=== PATIENT | male | born 1970 | race African-American/Black ===

== ENCOUNTER 2021-10-28 05:37 | Inpatient (IN) | payer MEDICAID ==
[~2021-10-28] VITALS: Ht 190.5 cm; Wt 66.3 kg
[2021-10-28 10:17] LABS: BASOPHILS % 0.4 % (0.0-2.0); EOSINOPHILS % 0.1 % (0.0-5.0); HEMATOCRIT. 42.8 % (42.0-52.0); HEMOGLOBIN. 14.2 g/dL (14.0-18.0); LYMPHOCYTES % 7.5 % (20.0-50.0); MEAN CORPUSCULAR VOLUME 90.2 fL (80.0-94.0); MEAN PLATELET VOLUME 7.4 fl (7.4-10.4); MONOCYTES % 5.6 % (2.0-8.0); NEUTROPHILS % 86.4 % (40.0-76.0); PLATELET 239 x1000/uL (130-400); RED BLOOD CELL COUNT 4.75 mill/uL (4.7-6.1)
[2021-10-28 10:22] LABS: CHLORIDE 105 mEq/L (98-107)
[2021-10-28 10:40] LABS: *AMPHETAMINES SCREEN URINE NEGATIVE (NEGATIVE); *BARBITURATES SCREEN URINE NEGATIVE (NEGATIVE); *BENZODIAZEPINES SCREEN URINE PRESUMTIVE POSITIVE (NEGATIVE); *COCAINE SCREEN URINE NEGATIVE (NEGATIVE); METHADONE URINE SCREEN NEGATIVE (NEGATIVE); OPIATES URINE SCREEN NEGATIVE (NEGATIVE)
[2021-10-28 10:41] LABS: CANNABINOID URINE SCREEN PRESUMTIVE POSITIVE (NEGATIVE); PHENCYCLIDINE URINE SCREEN NEGATIVE (NEGATIVE)
[2021-10-28] MEDS ORDERED: LEVETIRACETAM 500MG PREMIX 100 ML IV ONE ×2 (11:00→11:15)
[2021-10-28 16:29] LABS: VITAMIN B12 SERUM 474 pg/mL (211-911)
[2021-10-28 20:00] VITALS: BP 117/78
[2021-10-28 20:30] VITALS: BP 117/78
[2021-10-28] MEDS ORDERED: LEVETIRACETAM 750 MG in SODIUM CHLORIDE 0.9% 100 ML IV SCH (21:00)
[2021-10-28] MEDS ORDERED: ACETAMINOPHEN 325MG TABLET PO PRN (21:00)
[2021-10-29] VITALS: BP 112/72
[2021-10-29 04:00] VITALS: BP 152/79
[2021-10-29 07:51] LABS: BASOPHILS % 0.4 % (0.0-2.0); EOSINOPHILS % 0.3 % (0.0-5.0); HEMATOCRIT. 41.6 % (42.0-52.0); HEMOGLOBIN. 13.8 g/dL (14.0-18.0); LYMPHOCYTES % 23.5 % (20.0-50.0); MEAN CORPUSCULAR HEMOGLOBIN 30.2 pg (28.0-32.0); MEAN CORPUSCULAR VOLUME 90.7 fL (80.0-94.0); MEAN PLATELET VOLUME 7.7 fl (7.4-10.4); MONOCYTES % 10.4 % (2.0-8.0); NEUTROPHILS % 65.4 % (40.0-76.0); PLATELET 231 x1000/uL (130-400); RED BLOOD CELL COUNT 4.59 mill/uL (4.7-6.1); RED CELL DISTRIBUTION WIDTH 14.1 % (11.6-14.6)
[2021-10-29 08:00] VITALS: BP 121/70
[2021-10-29 08:24] LABS: CHLORIDE 106 mEq/L (98-107)
[2021-10-29] MEDS ORDERED: GADOTERATE MEGLUMINE 5 MMOL/10 ML VIAL IV ONE (09:14)
[2021-10-29] MEDS: LEVETIRACETAM 750 MG in SODIUM CHLORIDE 0.9% 100 ML IV SCH ×2 (10:12→21:43)
[2021-10-29 12:20] VITALS: BP 132/74
[2021-10-29 16:00] VITALS: BP 146/77
[2021-10-29] MEDS: ASPIRIN 81MG TABLET PO SCH (18:12)
[2021-10-29 20:00] VITALS: BP 117/73
[2021-10-29] MEDS: ATORVASTATIN CALCIUM 40MG TABLET PO SCH (21:43)
[2021-10-30 00:30] VITALS: BP 111/67
[2021-10-30 04:00] VITALS: BP 125/72
[2021-10-30 08:00] VITALS: BP 113/26
[2021-10-30] MEDS: ASPIRIN 81MG TABLET PO SCH (10:02)
[2021-10-30] MEDS: LEVETIRACETAM 750 MG in SODIUM CHLORIDE 0.9% 100 ML IV SCH ×2 (10:03→21:11)
[2021-10-30 12:00] VITALS: BP 98/65
[2021-10-30 16:00] VITALS: BP 132/86
[2021-10-30 20:00] VITALS: BP 114/71
[2021-10-30] MEDS: ATORVASTATIN CALCIUM 40MG TABLET PO SCH (21:14)
[2021-10-31] VITALS: BP 120/81
[2021-10-31 04:00] VITALS: BP 102/65
[2021-10-31 07:26] LABS: BASOPHILS % 1.1 % (0.0-2.0); EOSINOPHILS % 1.5 % (0.0-5.0); HEMATOCRIT. 43.3 % (42.0-52.0); HEMOGLOBIN. 14.2 g/dL (14.0-18.0); MEAN CORPUSCULAR HEMOGLOBIN 29.8 pg (28.0-32.0); MEAN CORPUSCULAR VOLUME 90.6 fL (80.0-94.0); MEAN PLATELET VOLUME 7.6 fl (7.4-10.4); NEUTROPHILS % 53.4 % (40.0-76.0); PLATELET 243 x1000/uL (130-400); RED BLOOD CELL COUNT 4.78 mill/uL (4.7-6.1); RED CELL DISTRIBUTION WIDTH 13.9 % (11.6-14.6)
[2021-10-31 08:00] VITALS: BP 115/62
[2021-10-31 08:06] LABS: CHLORIDE 106 mEq/L (98-107)
[2021-10-31 08:26] LABS: LDL CHOLESTEROL 88 mg/dL (5-100)
[2021-10-31 08:29] LABS: HDL CHOLESTEROL 38 mg/dL (40-59)
[2021-10-31] MEDS: ASPIRIN 81MG TABLET PO SCH (08:31)
[2021-10-31] MEDS ORDERED: LEVETIRACETAM 250MG TABLET PO SCH (09:00)
[2021-10-31 10:21] VITALS: BP 115/62
[2021-10-31] MEDS ORDERED: LEVE750T4 MT (10:31)
[2021-10-31] MEDS ORDERED: LIP40 PO (10:31)
== END 2021-10-31 11:05 | disposition home or self-care (01) | DRG 53 ==
LOC: ER 05:55 → ENRESERV 16:56 → EDBD 20:34 → 7EST 20:34
PROVIDERS: ADMIT Family Medicine Adult Medicine; ATTEND Family Medicine Adult Medicine
PROC: 4A10X4Z Monitoring of Central Nervous Electrical Activity, External Approach (ICD-10-PCS; principal; 2021-10-29)
DX: R56.9 Unspecified convulsions (principal); E78.5 Hyperlipidemia, unspecified; F12.90 Cannabis use, unspecified, uncomplicated; R00.1 Bradycardia, unspecified; I10 Essential (primary) hypertension; I44.7 Left bundle-branch block, unspecified; R32 Unspecified urinary incontinence; Z20.822 Contact with and (suspected) exposure to COVID-19; Z86.73 Personal history of transient ischemic attack (TIA), and cerebral infarction without residual deficits
CPT/HCPCS: 36415; 70553; 80048; 80061; 80076; 80305; 82607; 83735; 84443; 84484; 85025; 87426; 93005; 93306; 99285; A9577; J1953; J7050

== ENCOUNTER 2022-08-15 11:47 | Emergency (ER) | payer MEDICAID ==
[~2022-08-15] VITALS: Ht 188 cm; Wt 68.0 kg
[~2022-08-15 11:47] MED LIST: LEVE750T4 MT; LIP40 PO
[2022-08-15] MEDS ORDERED: ONDANSETRON HCL 4MG/2ML INJ IV STA (13:32)
[2022-08-15] MEDS ORDERED: LEVETIRACETAM 500MG PREMIX 100 ML IV ONE (13:45)
[2022-08-15] MEDS ORDERED: LEVETIRACETAM 1000MG PREMIX 100 ML IV ONE (13:45)
[2022-08-15 14:09] LABS: EOSINOPHILS % 0.1 % (0.0-5.0); HEMATOCRIT. 45.3 % (42.0-52.0); HEMOGLOBIN. 14.1 g/dL (14.0-18.0); LYMPHOCYTES % 11.4 % (20.0-50.0); MEAN CORPUSCULAR HEMOGLOBIN 29.7 pg (28.0-32.0); MEAN CORPUSCULAR VOLUME 95.2 fL (80.0-94.0); MEAN PLATELET VOLUME 7.5 fl (7.4-10.4); MONOCYTES % 3.3 % (2.0-8.0); NEUTROPHILS % 85.2 % (40.0-76.0); PLATELET 163 x1000/uL (130-400); RED BLOOD CELL COUNT 4.76 mill/uL (4.7-6.1); RED CELL DISTRIBUTION WIDTH 16.3 % (11.6-14.6)
[2022-08-15 14:19] LABS: CHLORIDE 103 mEq/L (98-107)
[2022-08-15 14:28] LABS: CREATINE KINASE 616 IU/L (39-308); ETHANOL BLOOD < 10 mg/dL
[2022-08-15] MEDS ORDERED: ACETAMINOPHEN 325MG TABLET PO ONE (14:30)
[2022-08-15] MEDS ORDERED: SODIUM CHLORIDE 0.9% 1,000 ML IV ONE (15:30)
[2022-08-15 16:41] LABS: *AMPHETAMINES SCREEN URINE NEGATIVE (NEGATIVE); *BARBITURATES SCREEN URINE NEGATIVE (NEGATIVE); *BENZODIAZEPINES SCREEN URINE NEGATIVE (NEGATIVE); *COCAINE SCREEN URINE NEGATIVE (NEGATIVE); CANNABINOID URINE SCREEN PRESUMTIVE POSITIVE (NEGATIVE); METHADONE URINE SCREEN NEGATIVE (NEGATIVE); OPIATES URINE SCREEN NEGATIVE (NEGATIVE); PHENCYCLIDINE URINE SCREEN NEGATIVE (NEGATIVE)
[2022-08-15 16:42] LABS: CLARITY URINE CLEAR (CLEAR); COLOR URINE YELLOW (YELLOW)
[2022-08-15 16:43] LABS: KETONES URINE 1+ (NEGATIVE); NITRITE URINE NEGATIVE (NEGATIVE); OCCULT BLOOD URINE 1+ (NEGATIVE); PROTEIN URINE 1+ (NEGATIVE); UROBILINOGEN URINE 0.2 E.U./dL (0.2-1.0)
[2022-08-15 16:44] LABS: LEUKOCYTE ESTERASE URINE NEGATIVE (NEGATIVE)
[2022-08-15] MEDS ORDERED: LEVE750T4 MT (16:45)
[2022-08-15] MEDS ORDERED: IBUPROFEN 800MG TABLET PO ONE (17:45)
[2022-08-15 17:59] VITALS: BP 109/64
[2022-08-22] MEDS ORDERED: LEVE750T4 MT (10:43)
== END 2022-08-15 18:40 | disposition home or self-care (01) ==
LOC: ER 12:35
DX: R56.9 Unspecified convulsions (principal); F12.10 Cannabis abuse, uncomplicated
CPT/HCPCS: 36415; 70450; 80053; 80305; 80320; 81003; 82550; 83690; 85025; 96365; 96366; 96375; 99284; J1953; J2405; J7030; G0480